=== PATIENT | female | born 1955 | race Caucasian/White ===

== ENCOUNTER 2017-09-10 21:33 | Inpatient (IN) | payer MEDICAID ==
[~2017-09-10] VITALS: Ht 160 cm; Wt 89.4 kg
[2017-09-10 21:49] VITALS: Ht 160 cm; Wt 89.4 kg
[2017-09-10 23:26] LABS: BASOPHIL % 0.7 % (0-2); PLATELET COUNT 229 x10^3mcL (130-400); RED CELL DISTRIBUTION WIDTH 13.5 % (11.5-14.5)
[2017-09-10 23:49] LABS: CALCIUM 8.3 mg/dL (8.5-10.1); CARBON DIOXIDE 26.2 mmol/L (21-32); CHLORIDE SERUM 105 mmol/L (98-107); CREATININE SERUM 1.1 mg/dL (0.6-1.0); GFR1 54 mL/min; GLUCOSE SERUM 135 mg/dL (74-106); SODIUM SERUM 137 mmol/L (136-145)
[2017-09-10 23:53] LABS: ALBUMIN 2.4 g/dL (3.4-5.0); ALKALINE PHOSPHATASE 112 U/L (46-116); ALT/SGPT 123 U/L (14-59); AMYLASE 33 U/L (25-115); AST/SGOT 95 U/L (15-37); BILIRUBIN TOTAL 0.3 mg/dL (0.20-1.00); LIPASE 306 IU/L (73-393); TOTAL PROTEIN, SERUM 5.9 g/dL (6.4-8.2)
[2017-09-10 23:54] LABS: rbc morphology (normal/abnorm) ABNORMAL (NORMAL)
[2017-09-10 23:56] LABS: microscopic required? NO
[2017-09-11] VITALS (7 sets, daily range): BP systolic 86–112; BP diastolic 39–74
[2017-09-11 00:42] LABS: UA SPECIFIC GRAVITY 1.015 (1.005-1.035); urine erythrocyte NEGATIVE (NEGATIVE)
[2017-09-11 00:50] LABS: AMPHETAMINE QUAL UR NONE DETECTED (NEG <=1000)
[2017-09-11 01:40] LABS: FREE T4 1.19 ng/dL (0.76-1.46); FREE THYROXINE INDEX 3.2 ug/dL (1.4-4.5); T4(THYROXINE) 9.6 ug/dL (4.7-13.3)
[2017-09-11 02:02] LABS: CHOLESTEROL/HDL RATIO 3.4; MAGNESIUM 1.7 mg/dL (1.8-2.4); PHOSPHOROUS 3.1 mg/dL (2.5-4.9)
[2017-09-11 03:33] LABS: T3 TOTAL 1.18 ng/mL
[2017-09-11 06:54] LABS: CALCIUM 8.4 mg/dL (8.5-10.1); CREATININE SERUM 1.1 mg/dL (0.6-1.0); POTASSIUM SERUM 4.6 mmol/L (3.5-5.1)
[2017-09-11 08:14] LABS: BASOPHIL % 0.6 % (0-2); RED CELL DISTRIBUTION WIDTH 13.8 % (11.5-14.5)
[2017-09-11 09:45] LABS: RED BLOOD CELLS 1.39 M/mm3 (4.10-5.10)
[2017-09-11 10:01] LABS: TOTAL IRON BINDING CAPACITY 324 ug/dL (250-450)
[2017-09-11 10:02] LABS: IRON 15 ug/dL (50-170)
[2017-09-11 10:51] LABS: rbc morphology (normal/abnorm) ABNORMAL (NORMAL)
[2017-09-11 10:52] LABS: PLATELET COUNT 122 x10^3mcL (130-400)
[2017-09-11 11:50] LABS: BASOPHIL % 0.7 % (0-2)
[2017-09-11 11:52] LABS: PLATELET COUNT 181 x10^3mcL (130-400)
[2017-09-11 11:54] LABS: RED CELL DISTRIBUTION WIDTH 16.3 % (11.5-14.5)
[2017-09-11 13:14] LABS: rbc morphology (normal/abnorm) ABNORMAL (NORMAL)
[2017-09-11 16:26] LABS: BASOPHIL % 0.7 % (0-2); PLATELET COUNT 183 x10^3mcL (130-400)
[2017-09-11 16:29] LABS: RED CELL DISTRIBUTION WIDTH 18.3 % (11.5-14.5)
[2017-09-11 18:18] LABS: rbc morphology (normal/abnorm) ABNORMAL (NORMAL)
[2017-09-12 06:01] VITALS: BP 136/69
[2017-09-12 07:50] LABS: CALCIUM 7.8 mg/dL (8.5-10.1); CARBON DIOXIDE 25.3 mmol/L (21-32)
[2017-09-12 08:02] LABS: BASOPHIL % 0.5 % (0-2); PLATELET COUNT 188 x10^3mcL (130-400)
[2017-09-12 08:03] LABS: RED CELL DISTRIBUTION WIDTH 18.8 % (11.5-14.5)
[2017-09-12 08:11] LABS: rbc morphology (normal/abnorm) ABNORMAL (NORMAL)
[2017-09-12 10:06] VITALS: BP 116/61
[2017-09-12 13:38] VITALS: BP 123/63
[2017-09-12 18:02] VITALS: BP 110/53
[2017-09-12 20:43] VITALS: BP 100/40
[2017-09-13 06:08] VITALS: BP 90/37
[2017-09-13 07:46] LABS: BASOPHIL % 0.4 % (0-2); PLATELET COUNT 182 x10^3mcL (130-400)
[2017-09-13 07:48] LABS: RED CELL DISTRIBUTION WIDTH 17.8 % (11.5-14.5)
[2017-09-13 07:52] LABS: rbc morphology (normal/abnorm) ABNORMAL (NORMAL)
[2017-09-13 08:16] LABS: CALCIUM 7.8 mg/dL (8.5-10.1); CARBON DIOXIDE 23.2 mmol/L (21-32); CHLORIDE SERUM 107 mmol/L (98-107); CREATININE SERUM 0.9 mg/dL (0.6-1.0); GFR1 > 60 mL/min; GLUCOSE SERUM 119 mg/dL (74-106); MAGNESIUM 1.5 mg/dL (1.8-2.4); PHOSPHOROUS 3.6 mg/dL (2.5-4.9); POTASSIUM SERUM 4.2 mmol/L (3.5-5.1); SODIUM SERUM 139 mmol/L (136-145)
[2017-09-13 09:38] VITALS: BP 102/54
[2017-09-13 11:38] LABS: BASOPHIL % 0.4 % (0-2); PLATELET COUNT 192 x10^3mcL (130-400)
[2017-09-13 11:47] LABS: RED CELL DISTRIBUTION WIDTH 17.8 % (11.5-14.5)
[2017-09-13 11:48] LABS: rbc morphology (normal/abnorm) ABNORMAL (NORMAL)
[2017-09-13 13:06] VITALS: BP 93/55
[2017-09-13 17:11] LABS: BASOPHIL % 0.5 % (0-2); PLATELET COUNT 193 x10^3mcL (130-400)
[2017-09-13 17:19] LABS: RED CELL DISTRIBUTION WIDTH 17.3 % (11.5-14.5)
[2017-09-13 17:24] VITALS: BP 120/72
[2017-09-14 08:29] LABS: CALCIUM 7.9 mg/dL (8.5-10.1); CARBON DIOXIDE 24.8 mmol/L (21-32); CHLORIDE SERUM 109 mmol/L (98-107); CREATININE SERUM 0.8 mg/dL (0.6-1.0); GFR1 > 60 mL/min; GLUCOSE SERUM 93 mg/dL (74-106); MAGNESIUM 1.6 mg/dL (1.8-2.4); PHOSPHOROUS 3.9 mg/dL (2.5-4.9); POTASSIUM SERUM 4.2 mmol/L (3.5-5.1); SODIUM SERUM 139 mmol/L (136-145)
[2017-09-14 08:55] LABS: BASOPHIL % 0.4 % (0-2); PLATELET COUNT 197 x10^3mcL (130-400)
[2017-09-14 09:03] LABS: RED CELL DISTRIBUTION WIDTH 17.8 % (11.5-14.5)
[2017-09-14 09:04] VITALS: BP 135/70
[2017-09-14 12:27] VITALS: BP 135/76
[2017-09-14 21:52] VITALS: BP 151/76
[2017-09-15 06:52] VITALS: BP 109/64
[2017-09-15 07:09] LABS: BASOPHIL % 0.6 % (0-2); PLATELET COUNT 247 x10^3mcL (130-400)
[2017-09-15 07:39] LABS: CALCIUM 8.3 mg/dL (8.5-10.1); CHLORIDE SERUM 107 mmol/L (98-107); CREATININE SERUM 0.9 mg/dL (0.6-1.0); GFR1 > 60 mL/min; GLUCOSE SERUM 89 mg/dL (74-106); MAGNESIUM 1.7 mg/dL (1.8-2.4); POTASSIUM SERUM 4.1 mmol/L (3.5-5.1); SODIUM SERUM 140 mmol/L (136-145)
[2017-09-15 08:34] LABS: RED CELL DISTRIBUTION WIDTH 16.8 % (11.5-14.5)
[2017-09-15 10:12] VITALS: BP 119/64
[2017-09-15 14:23] VITALS: BP 113/55
[2017-09-15 17:35] VITALS: BP 122/71
[2017-09-15 21:45] VITALS: BP 124/77
[2017-09-16 05:56] VITALS: BP 144/57
[2017-09-16 07:25] LABS: BASOPHIL % 0.6 % (0-2); PLATELET COUNT 258 x10^3mcL (130-400)
[2017-09-16 07:26] LABS: RED CELL DISTRIBUTION WIDTH 17.2 % (11.5-14.5)
[2017-09-16 07:44] LABS: CALCIUM 8.1 mg/dL (8.5-10.1); CARBON DIOXIDE 26.6 mmol/L (21-32); POTASSIUM SERUM 4.1 mmol/L (3.5-5.1)
[2017-09-16 09:46] VITALS: BP 104/54
[2017-09-16 17:49] VITALS: BP 135/54
[2017-09-17] MEDS ORDERED: METAMUCIL0.52 GM PO (13:28)
[2017-09-17] MEDS ORDERED: PREVPAC1 KIT PO ×2 (13:33→13:46)
[2017-09-17] MEDS ORDERED: LEVAQUIN750 MG PO (13:35)
[2017-09-17] MEDS ORDERED: LAC PO (13:35)
[2017-09-17 13:57] VITALS: BP 135/54
== END 2017-09-17 15:36 | disposition home or self-care (01) | DRG 244 ==
LOC: ED 21:33 → DU 09-11 00:08 → MU 09-15 22:07
PROVIDERS: Family Medicine; Family Medicine Sports Medicine; Internal Medicine; Internal Medicine Gastroenterology; Specialist
PROC: 0DB78ZX Excision of Stomach, Pylorus, Via Natural or Artificial Opening Endoscopic, Diagnostic (ICD-10-PCS; principal; 2017-09-13 08:00)
PROC: 0DBP8ZZ Excision of Rectum, Via Natural or Artificial Opening Endoscopic (ICD-10-PCS; 2017-09-15)
PROC: 0DBF8ZZ Excision of Right Large Intestine, Via Natural or Artificial Opening Endoscopic (ICD-10-PCS; 2017-09-15 10:30)
DX: K57.31 Diverticulosis of large intestine without perforation or abscess with bleeding (principal); J69.0 Pneumonitis due to inhalation of food and vomit; E43 Unspecified severe protein-calorie malnutrition; G93.41 Metabolic encephalopathy; A04.8 Other specified bacterial intestinal infections; E11.65 Type 2 diabetes mellitus with hyperglycemia; E83.42 Hypomagnesemia; K29.00 Acute gastritis without bleeding; D53.9 Nutritional anemia, unspecified; K26.9 Duodenal ulcer, unspecified as acute or chronic, without hemorrhage or perforation; F10.20 Alcohol dependence, uncomplicated; I10 Essential (primary) hypertension; E02 Subclinical iodine-deficiency hypothyroidism; R74.0 Nonspecific elevation of levels of transaminase and lactic acid dehydrogenase [LDH]; Z59.0 Homelessness; Z68.32 Body mass index [BMI] 32.0-32.9, adult
CPT/HCPCS: 43235; 45378; 83880; 84439; 94150; C9113; G0480; J0515; J0696; J1200; J1610; J1630; J1815; J1940; J1956; J2060; J2250; J2310; J2405; J3010; J3490; J7030; J7040; J7050; J7620; P9016; Q0092; Q0163

== ENCOUNTER 2018-02-25 15:02 | Inpatient (IN) | payer MEDICAID ==
[~2018-02-25] VITALS: Ht 160 cm; Wt 78.0 kg
[~2018-02-25 15:02] MED LIST: LAC PO; LEVAQUIN750 MG PO; METAMUCIL0.52 GM PO; PREVPAC1 KIT PO
[2018-02-25 15:55] LABS: BASOPHIL % 0.6 % (0-2); PLATELET COUNT 264 x10^3mcL (130-400)
[2018-02-25 16:00] LABS: RED CELL DISTRIBUTION WIDTH 20.2 % (11.5-14.5)
[2018-02-25 16:00] LABS: microscopic required? NO
[2018-02-25 16:06] LABS: CALCIUM 8.3 mg/dL (8.5-10.1); CARBON DIOXIDE 25.9 mmol/L (21-32); CHLORIDE SERUM 103 mmol/L (98-107); CREATININE SERUM 0.7 mg/dL (0.6-1.0); GFR1 > 60 mL/min; GLUCOSE SERUM 104 mg/dL (74-106); POTASSIUM SERUM 3.6 mmol/L (3.5-5.1); SODIUM SERUM 137 mmol/L (136-145)
[2018-02-25 16:11] LABS: ALKALINE PHOSPHATASE 185 U/L (46-116); ALT/SGPT 79 U/L (14-59); AST/SGOT 87 U/L (15-37); BILIRUBIN TOTAL 0.65 mg/dL (0.20-1.00); TOTAL PROTEIN, SERUM 7.7 g/dL (6.4-8.2)
[2018-02-25 16:20] LABS: AMPHETAMINE QUAL UR NONE DETECTED (NEG <=1000)
[2018-02-25 16:37] LABS: UA SPECIFIC GRAVITY <=1.005 (1.005-1.035); urine erythrocyte NEGATIVE (NEGATIVE)
[2018-02-26 02:24] VITALS: BP 166/89
[2018-02-26 03:33] LABS: IRON 45 ug/dL (50-170); TOTAL IRON BINDING CAPACITY 351 ug/dL (250-450)
[2018-02-26 03:36] LABS: RED BLOOD CELLS 3.8 M/mm3 (4.10-5.10)
[2018-02-26 03:37] LABS: CHOLESTEROL/HDL RATIO 2.1; MAGNESIUM 1.9 mg/dL (1.8-2.4); PHOSPHOROUS 4.2 mg/dL (2.5-4.9)
[2018-02-26 03:45] LABS: FREE T4 1.03 ng/dL (0.76-1.46); FREE THYROXINE INDEX 2.8 ug/dL (1.4-4.5); T4(THYROXINE) 8.4 ug/dL (4.7-13.3)
[2018-02-26 03:54] LABS: T3 TOTAL 1.24 ng/mL
[2018-02-26 09:09] VITALS: BP 156/87
[2018-02-26 13:06] VITALS: BP 167/82
[2018-02-26 15:35] VITALS: BP 146/70
[2018-02-26 18:12] VITALS: BP 141/75
[2018-02-26 20:31] VITALS: BP 137/59
[2018-02-27 05:54] VITALS: BP 145/86
[2018-02-27 07:08] LABS: BASOPHIL % 0.4 % (0-2); PLATELET COUNT 209 x10^3mcL (130-400)
[2018-02-27 07:29] LABS: RED CELL DISTRIBUTION WIDTH 20.6 % (11.5-14.5); rbc morphology (normal/abnorm) ABNORMAL (NORMAL)
[2018-02-27 07:33] LABS: CALCIUM 8.5 mg/dL (8.5-10.1); CARBON DIOXIDE 25.5 mmol/L (21-32); CHLORIDE SERUM 110 mmol/L (98-107); CREATININE SERUM 0.8 mg/dL (0.6-1.0); GFR1 > 60 mL/min; GLUCOSE SERUM 95 mg/dL (74-106); POTASSIUM SERUM 3.8 mmol/L (3.5-5.1); SODIUM SERUM 141 mmol/L (136-145)
[2018-02-27 10:03] VITALS: Ht 160 cm; Wt 78.0 kg
[2018-02-28 05:30] VITALS: BP 165/72
[2018-02-28 07:06] LABS: BASOPHIL % 0.5 % (0-2); PLATELET COUNT 198 x10^3mcL (130-400)
[2018-02-28 07:07] LABS: RED CELL DISTRIBUTION WIDTH 20.1 % (11.5-14.5); rbc morphology (normal/abnorm) ABNORMAL (NORMAL)
[2018-02-28 07:14] LABS: CALCIUM 8.5 mg/dL (8.5-10.1); CARBON DIOXIDE 26.2 mmol/L (21-32); CHLORIDE SERUM 107 mmol/L (98-107); CREATININE SERUM 0.7 mg/dL (0.6-1.0); GFR1 > 60 mL/min; GLUCOSE SERUM 124 mg/dL (74-106); MAGNESIUM 1.8 mg/dL (1.8-2.4); PHOSPHOROUS 4.1 mg/dL (2.5-4.9); POTASSIUM SERUM 3.7 mmol/L (3.5-5.1); SODIUM SERUM 140 mmol/L (136-145)
[2018-02-28 10:48] VITALS: BP 162/82
[2018-02-28 18:00] VITALS: BP 177/94
[2018-02-28 20:38] VITALS: BP 168/83
[2018-03-01 06:00] VITALS: BP 174/75
[2018-03-01 07:20] LABS: BASOPHIL % 0.7 % (0-2); PLATELET COUNT 217 x10^3mcL (130-400)
[2018-03-01 07:33] LABS: CALCIUM 8.5 mg/dL (8.5-10.1); CARBON DIOXIDE 26.9 mmol/L (21-32); CHLORIDE SERUM 106 mmol/L (98-107); CREATININE SERUM 0.7 mg/dL (0.6-1.0); GFR1 > 60 mL/min; GLUCOSE SERUM 125 mg/dL (74-106); MAGNESIUM 1.8 mg/dL (1.8-2.4); PHOSPHOROUS 4.5 mg/dL (2.5-4.9); POTASSIUM SERUM 4.1 mmol/L (3.5-5.1); SODIUM SERUM 140 mmol/L (136-145)
[2018-03-01 07:59] LABS: RED CELL DISTRIBUTION WIDTH 20.3 % (11.5-14.5)
[2018-03-01 10:26] VITALS: BP 179/88
[2018-03-01 11:01] VITALS: BP 143/63
[2018-03-01 13:10] VITALS: BP 153/93
[2018-03-01 17:09] VITALS: BP 169/103
[2018-03-01 18:19] VITALS: BP 106/69
[2018-03-02 16:31] LABS: BASOPHIL % 0.4 % (0-2); PLATELET COUNT 241 x10^3mcL (130-400); RED CELL DISTRIBUTION WIDTH 21.6 % (11.5-14.5)
[2018-03-02 16:56] LABS: CARBON DIOXIDE 22.1 mmol/L (21-32); CHLORIDE SERUM 105 mmol/L (98-107); CREATININE SERUM 0.9 mg/dL (0.6-1.0); GFR1 > 60 mL/min; GLUCOSE SERUM 125 mg/dL (74-106); MAGNESIUM 2.2 mg/dL (1.8-2.4); PHOSPHOROUS 4.4 mg/dL (2.5-4.9); POTASSIUM SERUM 4.4 mmol/L (3.5-5.1); SODIUM SERUM 138 mmol/L (136-145)
[2018-03-02 16:57] VITALS: BP 120/66
[2018-03-02 17:40] VITALS: BP 136/77
[2018-03-02 20:56] VITALS: BP 128/83
[2018-03-03 19:05] VITALS: BP 122/67
[2018-03-03 20:58] VITALS: BP 134/69
[2018-03-04 18:50] VITALS: BP 141/72
[2018-03-04 19:22] LABS: BASOPHIL % 0.6 % (0-2); PLATELET COUNT 191 x10^3mcL (130-400)
[2018-03-04 19:23] LABS: RED CELL DISTRIBUTION WIDTH 20.6 % (11.5-14.5)
[2018-03-04 19:36] LABS: CALCIUM 8.7 mg/dL (8.5-10.1); CARBON DIOXIDE 23.1 mmol/L (21-32); CHLORIDE SERUM 106 mmol/L (98-107); CREATININE SERUM 0.9 mg/dL (0.6-1.0); GFR1 > 60 mL/min; GLUCOSE SERUM 128 mg/dL (74-106); MAGNESIUM 2.1 mg/dL (1.8-2.4); PHOSPHOROUS 4.7 mg/dL (2.5-4.9); POTASSIUM SERUM 4.3 mmol/L (3.5-5.1); SODIUM SERUM 129 mmol/L (136-145)
[2018-03-04 20:07] LABS: rbc morphology (normal/abnorm) ABNORMAL (NORMAL)
[2018-03-05 07:45] VITALS: BP 126/84
[2018-03-05 13:21] LABS: PLATELET COUNT 185 x10^3mcL (130-400)
[2018-03-05 13:25] LABS: BASOPHIL % 2.1 % (0-2); RED CELL DISTRIBUTION WIDTH 21.5 % (11.5-14.5)
[2018-03-05 13:40] LABS: CALCIUM 9.3 mg/dL (8.5-10.1); CARBON DIOXIDE 24.8 mmol/L (21-32); CHLORIDE SERUM 104 mmol/L (98-107); CREATININE SERUM 0.9 mg/dL (0.6-1.0); GFR1 > 60 mL/min; GLUCOSE SERUM 142 mg/dL (74-106); MAGNESIUM 1.9 mg/dL (1.8-2.4); PHOSPHOROUS 4.8 mg/dL (2.5-4.9); POTASSIUM SERUM 4.4 mmol/L (3.5-5.1); SODIUM SERUM 139 mmol/L (136-145)
[2018-03-05 13:58] LABS: rbc morphology (normal/abnorm) ABNORMAL (NORMAL)
[2018-03-05 13:59] LABS: ovalocyte/elliptocyte 1+
[2018-03-05 16:02] VITALS: BP 134/77
[2018-03-05 20:02] VITALS: BP 135/63
[2018-03-06 08:27] VITALS: BP 127/74
[2018-03-06] MEDS ORDERED: FER300 PO (16:12)
[2018-03-06] MEDS ORDERED: ZES20 PO (16:12)
[2018-03-06] MEDS ORDERED: MOT400 PO (16:12)
[2018-03-06] MEDS ORDERED: NOR10 PO (16:12)
[2018-03-06] MEDS ORDERED: SEROQUEL200 MG PO (16:13)
[2018-03-06] MEDS ORDERED: COL100 PO (16:14)
[2018-03-06] MEDS ORDERED: PRI20 PO (16:14)
[2018-03-06] MEDS ORDERED: VITC PO (16:16)
[2018-03-06 17:34] VITALS: BP 127/74
[2018-03-06 18:45] VITALS: BP 120/65
[2018-03-06 21:02] VITALS: BP 139/84
[2018-03-07 09:25] VITALS: BP 131/82
[2018-03-07 16:59] VITALS: BP 130/73
[2018-03-07 21:15] VITALS: BP 117/63
[2018-03-08 10:18] VITALS: BP 121/72
== END 2018-03-08 14:55 | disposition home or self-care (01) | DRG 816 ==
LOC: ED 15:02 → DU 02-26 00:18 → MU 02-26 00:18 → DU 02-26 01:35 → MU 02-27 08:25
PROVIDERS: Emergency Medicine; Family Medicine; Student in an Organized Health Care Education/Training Program
DX: T40.5X4A Poisoning by cocaine, undetermined, initial encounter (principal); N17.0 Acute kidney failure with tubular necrosis; G92 Toxic encephalopathy; E44.0 Moderate protein-calorie malnutrition; E87.1 Hypo-osmolality and hyponatremia; F25.0 Schizoaffective disorder, bipolar type; Z68.45 Body mass index [BMI] 70 or greater, adult; B85.2 Pediculosis, unspecified; R45.851 Suicidal ideations; B86 Scabies; I10 Essential (primary) hypertension; E11.9 Type 2 diabetes mellitus without complications; D64.9 Anemia, unspecified; F32.9 Major depressive disorder, single episode, unspecified; I25.2 Old myocardial infarction; F23 Brief psychotic disorder; F10.10 Alcohol abuse, uncomplicated; Y90.9 Presence of alcohol in blood, level not specified; Z91.19 Patient's noncompliance with other medical treatment and regimen; E02 Subclinical iodine-deficiency hypothyroidism; B19.20 Unspecified viral hepatitis C without hepatic coma; Z98.51 Tubal ligation status; Z59.0 Homelessness; F17.200 Nicotine dependence, unspecified, uncomplicated; E66.9 Obesity, unspecified; F15.10 Other stimulant abuse, uncomplicated
CPT/HCPCS: 83880; 84439; G0480; J0360; J2060; J3486; J3490; J7030; Q0092; Q0163